=== PATIENT | female | born 1990 | race Caucasian/White ===

== ENCOUNTER 2016-12-03 06:29 | Inpatient (IN) | payer OTHER ==
[~2016-12-03] VITALS: Ht 165.1 cm; Wt 74.4 kg
[2016-12-03] VITALS (21 sets, daily range): BP systolic 117–140; BP diastolic 59–81
[2016-12-03] MEDS ORDERED: PRENATAL TABLE1 EAC3 PO (07:28)
[2016-12-03 10:17] LABS: EOSINOPHIL (%) 0.6 % (0-5); EOSINOPHIL COUNT 0.1 K/uL (0-0.3); HEMATOCRIT 32.7 % (36.0-46.0); IMMATURE GRANULOCYTE (%) 0.5 % (0.0-0.7); IMMATURE GRANULOCYTE COUNT 0.1 K/uL; MCH 31.1 PG (29.0-34.0); MCHC 33.3 G/DL (30.0-36.0); MCV 93.2 FL (83-99); MONOCYTE (%) 5.5 % (3-12); MONOCYTE COUNT 0.9 K/uL (0-0.8); NEUTROPHIL (%) 73.6 % (45-76); NEUTROPHIL COUNT 11.4 K/uL (1.8-6.4); PLATELET COUNT 402 K/uL (156-360); RBC DIS.WIDTH-CV 15.7 % (11.8-14.6); RBC DIS.WIDTH-SD 52.4 % (39-53); RED BLOOD COUNT 3.51 M/uL (3.80-5.20); WHITE BLOOD COUNT 15.4 K/uL (4.1-10.2)
[2016-12-04] VITALS (10 sets, daily range): BP systolic 109–133; BP diastolic 55–76
[2016-12-05 07:24] LABS: BASOPHIL COUNT 0.1 K/uL (0-0.1); EOSINOPHIL (%) 1.3 % (0-5); EOSINOPHIL COUNT 0.3 K/uL (0-0.3); HEMATOCRIT 27.9 % (36.0-46.0); IMMATURE GRANULOCYTE (%) 0.5 % (0.0-0.7); IMMATURE GRANULOCYTE COUNT 0.1 K/uL; LYMPHOCYTE COUNT 4.5 K/uL (1.0-2.8); MCH 30.8 PG (29.0-34.0); MCHC 32.6 G/DL (30.0-36.0); MCV 94.6 FL (83-99); MEAN PLAT.VOLUME 9.5 uM^3 (9.5-12.4); MONOCYTE (%) 6.3 % (3-12); MONOCYTE COUNT 1.2 K/uL (0-0.8); NEUTROPHIL (%) 68.4 % (45-76); NEUTROPHIL COUNT 13.2 K/uL (1.8-6.4); PLATELET COUNT 351 K/uL (156-360); RBC DIS.WIDTH-SD 54.8 % (39-53); RED BLOOD COUNT 2.95 M/uL (3.80-5.20); WHITE BLOOD COUNT 19.2 K/uL (4.1-10.2)
[2016-12-05 08:00] VITALS: BP 126/74
[2016-12-05 15:10] VITALS: BP 128/74
[2016-12-05 23:53] VITALS: BP 132/83
[2016-12-06 07:22] VITALS: BP 143/77
[2016-12-06] MEDS ORDERED: IBUPROFEN800 MG PO (09:41)
== END 2016-12-06 12:37 | disposition home or self-care (01) | DRG 775 ==
LOC: LDRP-OP → 2WEST 06:30 → LDRP-OP 01-03 11:26
PROVIDERS: Advanced Practice Midwife
DX: O70.0 First degree perineal laceration during delivery (principal); Z37.0 Single live birth; Z3A.40 40 weeks gestation of pregnancy
CPT/HCPCS: 85025; 86900; 86901; C1755; G0378; J3010; J7120

== ENCOUNTER → 2016-12-29 | Outpatient (CLI) | payer OTHER ==
[~2016-12-29] MED LIST: IBUPROFEN800 MG PO; PRENATAL TABLE1 EAC3 PO
== END | disposition home or self-care (01) ==
LOC: LAC 12:34
DX: O92.79 Other disorders of lactation (principal)
CPT/HCPCS: G0463

== ENCOUNTER → 2016-12-31 | Outpatient (CLI) | payer OTHER | END | disposition home or self-care (01) | LOC: LAC 11:55 | DX: O92.79 Other disorders of lactation (principal) | CPT/HCPCS: G0463 ==